=== PATIENT | female | born 1935 ===

== ENCOUNTER → 2016-08-02 | Outpatient (CLI) | payer OTHER, MEDICARE ==
[2010-06-27 03:26] VITALS: BP 153/82
== END ==
LOC: MMPC 11:11
PROVIDERS: ATTEND Internal Medicine
DX: M47.816 Spondylosis without myelopathy or radiculopathy, lumbar region (principal); I10 Essential (primary) hypertension; M25.552 Pain in left hip; M25.551 Pain in right hip
CPT/HCPCS: 99203

== ENCOUNTER → 2016-08-03 | Outpatient (CLI) | payer OTHER, MEDICARE ==
[2010-06-27 03:26] VITALS: BP 153/82
[2016-08-03 08:48] LABS: BASOPHILS # (AUTO) 0.11 10*3/UL; BASOPHILS % (AUTO) 1.1 % (0-1); EOSINOPHILS # (AUTO) 0.25 10*3/UL; EOSINOPHILS % (AUTO) 2.6 % (0-8); HEMATOCRIT 43.9 % (37.0-47.0); HEMOGLOBIN 14.8 g/dL (12.0-16.0); MEAN CORPUSCULAR HEMOGLOBIN 28.7 PG (27-31); MEAN CORPUSCULAR HGB CONC 33.7 g/dL (33-37); MEAN CORPUSCULAR VOLUME 85.1 FL (81-99); MEAN PLATELET VOLUME 9.8 FL (7.4-12.2); MONOCYTES # (AUTO) 1.28 10*3/UL (0.3-0.8); MONOCYTES % (AUTO) 13.1 % (5-15); NEUTROPHILS # (AUTO) 6.39 10*3/UL; NEUTROPHILS % (AUTO) 65.5 % (50-80); RED BLOOD COUNT 5.16 10^6/uL (4.20-5.40)
[2016-08-03 08:53] LABS: PLATELET MORPHOLOGY COMMENT NORMAL MORPHOLOGY (NORM); RBC MORPHOLOGY COMMENT NORMAL MORPHOLOGY (NORM); WBC MORPHOLOGY COMMENT NORMAL MORPHOLOGY (NORM)
[2016-08-03 08:59] LABS: HEMOGLOBIN A1C 6.26 % (4.2-6.0)
[2016-08-03 09:00] LABS: BUN/CREATININE RATIO 18.75 (6-20)
[2016-08-03 09:14] LABS: CHOL/HDL RATIO 3.73 RATIO (0-4.0); LDL CHOLESTEROL,CALCULATED 101.4 mg/dL
[2016-08-03 09:31] LABS: BILIRUBIN,URINE NEGATIVE (NEG); CLARITY,URINE CLEAR (CLEAR); COLOR,URINE YELLOW; GLUCOSE, URINE (UA) NEGATIVE (NEG); NITRATE,URINE NEGATIVE (NEG); OCCULT BLOOD,URINE NEGATIVE (NEG); PH,URINE 8.5 (5.0-8.5); PROTEIN,URINE NEGATIVE (NEG); UROBILINOGEN,URINE 0.2 mg/dL (0.2)
[2016-08-03 09:35] LABS: BACTERIA,URINE FEW; RBC,URINE 0 /hpf; SQUAMOUS EPITHELIAL CELL,UR MODERATE; URINE SAMPLE TYPE CLEAN CATCH URINE; WBC,URINE 0-1
[2016-08-03 09:37] LABS: CREATININE, URINE 50.8 MG/DL (15-500)
[2016-08-03 10:06] LABS: FREE T4 (FREE THYROXINE) 1.1 ng/dL (0.93-1.71)
== END ==
LOC: LAB 08:32
PROVIDERS: ATTEND Internal Medicine
DX: I10 Essential (primary) hypertension (principal); E11.9 Type 2 diabetes mellitus without complications; M17.11 Unilateral primary osteoarthritis, right knee; M47.896 Other spondylosis, lumbar region; R00.2 Palpitations; R39.14 Feeling of incomplete bladder emptying; Z90.49 Acquired absence of other specified parts of digestive tract; Z84.89 Family history of other specified conditions; Z87.19 Personal history of other diseases of the digestive system
CPT/HCPCS: 36415; 80053; 80061; 81001; 82043; 83036; 84439; 84443; 85025; 85652

== ENCOUNTER → 2016-08-04 | Outpatient (CLI) | payer OTHER, MEDICARE ==
[2010-06-27 03:26] VITALS: BP 153/82
== END ==
LOC: MMPC 11:11
PROVIDERS: ATTEND Internal Medicine
DX: M47.896 Other spondylosis, lumbar region (principal); E11.9 Type 2 diabetes mellitus without complications; M54.89 Other dorsalgia; I10 Essential (primary) hypertension; E87.6 Hypokalemia; Z87.19 Personal history of other diseases of the digestive system; Z90.49 Acquired absence of other specified parts of digestive tract; Z98.890 Other specified postprocedural states
CPT/HCPCS: 99212; G0463

== ENCOUNTER → 2016-08-12 | Outpatient (CLI) | payer OTHER, MEDICARE ==
[2010-06-27 03:26] VITALS: BP 153/82
--- NOTE | 2016-08-12 11:41 | DI ---
XR L-SPINE MIN 4 VW,08/12/2016 10:48 AM: Clinical History: History of spinal surgery. Previous Exam: None at this facility. Findings: AP, lateral and oblique views of the lumbar spine are obtained. There are no comparisons available. There are laminectomies noted involving at least the L4 level. There is transpedicular fixation seen. There is diffuse osteopenia. There is interbody fixation of L4/5 as well. There is loss of intervertebral disc height at L5/S1. There is grade 1 anterolisthesis of L4 on L5. Peripheral vascular calcifications are seen. Mild degenerative changes are noted involving the symphysis pubis which is not well evaluated on this exam. Patient is status post cholecystectomy. Multiple vascular calcifications are seen of the splenic artery as well. Impression: Diffuse osteopenia and degenerative changes as above with postsurgical changes at L4/5.
--- NOTE | 2016-08-12 11:47 | DI ---
XR SACROILIAC JOINTS 3 OR >VW,08/12/2016 10:48 AM: Clinical History: Back pain without sciatica. Previous Exam: None available. Findings: 3 views of the sacroiliac joints are obtained, and demonstrate anatomic alignment without fractures. There is no significant sclerosis of the sacroiliac joints nor erosion to suggest sacroiliitis. Posts urgical changes are seen consistent with transpedicular and interbody fusion of L4/5 There is no evidence of pathologic calcification. There is no hip fracture. There is some sclerosis o f the symphysis pubis. Impression: Postsurgical changes of lower lumbar spine. Normal sacroiliac joints.
== END ==
LOC: RAD 10:44
PROVIDERS: ATTEND Internal Medicine
DX: M47.816 Spondylosis without myelopathy or radiculopathy, lumbar region (principal); Z98.1 Arthrodesis status
CPT/HCPCS: 72110; 72202

== ENCOUNTER → 2016-08-27 | Outpatient (CLI) | payer OTHER, MEDICARE ==
[2010-06-27 03:26] VITALS: BP 153/82
--- NOTE | 2016-08-28 18:00 | DI ---
MRI LUMBAR SPINE SCAN WITHOUT AND WITH IV CONTRAST, 08/27/2016 1:57 PM: Clinical History: History of spinal fusion. Previous Exam: None. Sequences: Pre and post contrast sagittal and axial T1; and axial T2 weighted and sagittal STIR scans . Contrast Dose: 16 mL of ProHance (279.3 mg/mL) The vertebral bodies are of normal height and size. The patient is status post L4 laminectomy with an terior and posterior fusions at L4-5. Posterior fusions are accomplished with metallic struts transfi xed with pedicle screws between L4 and L5. The cord terminates at T12, and the conus medullaris is n ormal. The T10-11 disc space is normal. T11-12 has a bulging but not herniated disc without canal or neural foraminal stenosis. T12-L1 disc space is normal. L1-2 and L2-3 disc spaces both have circumfer entially bulging but not herniated discs without neural foraminal stenosis or canal stenosis. Both le vels show moderate degenerative arthritic change of the apophyseal joints and atrophic change of the ligamentum flavum. L3-4 has marked hypertrophic changes of the ligamentum flavum in the apophyseal hattie ints. There is a central and right-sided disc herniation that probably is fragmented and shows some e nhancing tissue surrounding these presumed fragments, indicating there is some scar formation as well as. There is severe spinal canal stenosis without significant neural foraminal stenosis. There is a grade 1 spondylolisthesis. L4-5 has a grade 1 spondylolisthesis. There is no canal stenosis or neural foraminal stenosis at this level. A 5 x 7 x 5 mm cystic lesion is present on the right side of the e xtradural space of the mid body of L4. This fluid structure probably represents a synovial cyst or ga nglion arising from the right L3-4 apophyseal joint. The L5-S1 disc space is normal. Readin. There is severe spinal canal stenosis at L3-4 secondary to a combination of marked hypertrophic c hanges of the apophyseal joints and ligamentum flavum, a grade 1 spondylolisthesis, and a right anter olateral disc herniation. This disc herniation may be fragmented and there is enhancing tissue surrou nding the presumed fragments indicating there is also scar tissue formation. There is no significant neural foraminal stenosis. 2. Status post anterior and posterior fusions at L4-5 with an L4 laminectomy. There is no canal or n eural foraminal stenosis, but there is a posterior extradural fluid collection on the right side prob ably representing a ganglion cyst arising from the right L3-4 apophyseal joint. 3. There are bulging but not herniated discs without canal or neural foraminal stenosis at L1-2 and L2-3 with normal disc spaces at T10-11, T12-L1, and L5-S1.
== END ==
LOC: MRI 13:54
PROVIDERS: ATTEND Internal Medicine
DX: Z98.1 Arthrodesis status (principal); M48.06 Spinal stenosis, lumbar region; M43.16 Spondylolisthesis, lumbar region; M51.26 Other intervertebral disc displacement, lumbar region
CPT/HCPCS: 72158

== ENCOUNTER → 2016-09-06 | Outpatient (CLI) | payer OTHER, MEDICARE ==
[2010-06-27 03:26] VITALS: BP 153/82
== END ==
LOC: MOB LAB 10:52
PROVIDERS: ATTEND Physician Assistant
DX: J02.9 Acute pharyngitis, unspecified (principal); R59.0 Localized enlarged lymph nodes
CPT/HCPCS: 87880; G0463; 99213

== ENCOUNTER → 2016-09-15 | Outpatient (CLI) | payer OTHER, MEDICARE ==
[2010-06-27 03:26] VITALS: BP 153/82
[2016-09-15 17:18] LABS: BASOPHILS # (AUTO) 0.12 10*3/UL; BASOPHILS % (AUTO) 1.2 % (0-1); EOSINOPHILS # (AUTO) 0.19 10*3/UL; HEMATOCRIT 40.6 % (37.0-47.0); HEMOGLOBIN 13.8 g/dL (12.0-16.0); LYMPHOCYTES # (AUTO) 2.07 10*3/uL; MEAN CORPUSCULAR HEMOGLOBIN 28.9 PG (27-31); MEAN CORPUSCULAR VOLUME 85.1 FL (81-99); MEAN PLATELET VOLUME 10.5 FL (7.4-12.2); MONOCYTES # (AUTO) 1.19 10*3/UL (0.3-0.8); MONOCYTES % (AUTO) 12.3 % (5-15); NEUTROPHILS # (AUTO) 6.12 10*3/UL; NEUTROPHILS % (AUTO) 63.1 % (50-80); RED BLOOD COUNT 4.77 10^6/uL (4.20-5.40)
[2016-09-15 17:21] LABS: BUN/CREATININE RATIO 24.28 (6-20); CALCIUM 9.4 mg/dL (8.7-10.7); SERUM ALBUMIN 4.1 g/dL (3.5-4.8)
[2016-09-15 17:38] LABS: PLATELET MORPHOLOGY COMMENT NORMAL MORPHOLOGY (NORM); RBC MORPHOLOGY COMMENT NORMAL MORPHOLOGY (NORM); WBC MORPHOLOGY COMMENT NORMAL MORPHOLOGY (NORM)
--- NOTE | 2016-09-15 23:19 | DI ---
XR CXR 2VW PA/LAT,09/15/2016 3:14 PM: Clinical History: Preoperative evaluation. Previous Exam: None at this facility. Findings: PA and lateral views of the chest are obtained, and demonstrate clear lungs. There is diffuse COPD wi th flattening of the hemidiaphragms. Mild diffuse osteopenia is noted. There is a hiatal hernia. There is some mild anterior of the thoracic spine. Impression: Hiatal hernia and diffuse COPD.
== END ==
LOC: MOB LAB 15:17
PROVIDERS: ATTEND Internal Medicine
DX: M54.5 Low back pain (principal); J44.9 Chronic obstructive pulmonary disease, unspecified
CPT/HCPCS: 36415; 71020; 80053; 85025; 85730; 87641